=== PATIENT | male | born 1975 | race Caucasian/White ===

== ENCOUNTER 2016-05-15 21:00 | Emergency (ER) | payer OTHER ==
[~2016-05-15] VITALS: Ht 170.2 cm; Wt 91.0 kg
[2016-05-15 21:02] VITALS: BP 125/78; PULSE 54; RESP 16; TEMP 97.9; O2SAT 97
[2016-05-15] MEDS ORDERED: TETANUS/DIPHTHERIA TOXOID ADULT 0.5 ML VIAL IM ONE (21:45)
[2016-05-15] MEDS ORDERED: PROPARACAINE HCL 0.5% OPHT SOLN 15 ML BTL EACH EYE ONE (21:45)
--- NOTE | 2016-05-15 21:59 | PD ---
HPI Chief Complaint: Foreign Body Time Seen by Provider: 21:55 Travel History International Travel<30 days: No Contact w/Intl Traveler<30days: No Traveled to known affect area: No History of Present Illness HPI 40-year-old male presents emergency department with complaints of right eye pain. He states that sometime around 2:00 this afternoon while at work a piece of wood kicked up into his right eye underneath his glasses. He states that he has had pain and tearing. Positive photophobia. Positive foreign body sensation. He rinsed his eye out at work but has had persistent pain. Slight blurred vision. No diplopia. He is not a tetanus shot over 5 years. No glasses or contacts. PFSH Past Medical History Medical History: Denies Significant Hx Tetanus Vaccination: > 5 Years Past Surgical History Surgical History: No Previous Surgery Social History Alcohol Use: No Tobacco Use: Yes Substance Use: No Allergies-Medications (Allergen,Severity, Reaction): Coded Allergies: No Known Allergies (Unverified , 05/15/16) Review of Systems Except as stated in HPI: all other systems reviewed are Neg Eyes: Positive: Blurred Vision, Photophobia, Redness, Foreign Body Sensation, Pain, Tearing, Visual changes, No: Diploplia, Drainage Physical Exam Narrative GENERAL: Well-developed, well-nourished in no acute distress. Nontoxic appearing. HEAD: Normocephalic, atraumatic. EYES: Pupils equal round and reactive. Extraocular motions intact. No scleral icterus. No injection or drainage in the left eye. The right eye is injected. There is subconjunctival hemorrhage. Ophthaine is instilled the right eye. The lids are flipped and no foreign body seen. Fluorescein stain reveals 2 areas of corneal abrasion outside of the central vision. One at the nasal aspect and one at the superior aspect of the cornea. ENT: TMs clear without erythema. The external auditory canals clear. Nose: clear . Posterior pharynx is pink and moist. No tonsillar edema or exudate. Uvula midline. Airway patent. NECK: Trachea midline.Supple, nontender, moves head freely. No central bony tenderness or spasm. CARDIOVASCULAR: Regular rate and rhythm without murmurs, gallops, or rubs. RESPIRATORY: Clear to auscultation. Breath sounds equal bilaterally. No wheezes , rales, or rhonchi. GASTROINTESTINAL: Abdomen soft, non-tender, nondistended. No hepato-splenomegaly , or palpable masses. No guarding. EXTREMITIES: No clubbing, cyanosis, or edema. No joint tenderness, effusion, or edema noted. BACK: Nontender without deformity or crepitance. No flank tenderness. Data Data Last Documented VS Vital Signs Date Time Temp Pulse Resp B/P Pulse Ox O2 Delivery O2 Flow Rate FiO2 05/15/16 21:02 97.9 54 16 125/78 97 Room Air Orders Proparacaine 0.5% Opth Soln (Alcaine 0.5 (05/15/16 21:45) Tetanus/Diphtheria Tox Adult (Tetanus/Di (05/15/16 21:45) Tobramycin 0.3% Opth Oint (Tobrex 0.3% O (05/15/16 22:00) MDM Medical Decision Making Medical Screen Exam Complete: Yes Emergency Medical Condition: Yes Medical Record Reviewed: Yes Differential Diagnosis MDM: High Differential diagnoses: Acute conjunctivitis (bacterial, viral, allergic, traumatic), glaucoma, iritis, traumatic globe injury, foreign body, corneal abrasion, corneal ulcer, diabetic retinopathy, photokeratitis, herpes keratitis , CMV retinitis Narrative Course This is acute corneal abrasion Patient's tetanus status updated. Tobramycin ophthalmic ointment and one Lortab 5 a grams by mouth. Diagnosis Primary Impression: Right corneal abrasion Qualified Code: S05.01XA - Right corneal abrasion, initial encounter Referrals: Berta West MD 1 day Patient Instructions: General Instructions Departure Forms: Tests/Procedures, Work Release Special Instructions: No work 2 days. Additional Instructions: Rest. Tobramycin ophthalmic ointment. One ribbon to the right eye 4 times daily. Tylenol or Advil. Recheck tomorrow with the environmental protection geologist. Return to the ER if any problems. Med/Other Pt SpecificInfo: Prescription(s) given Disposition: 01 DISCHARGE HOME Condition: Stable Tay Quinn May 15, 2016 21:59
[2016-05-15] MEDS ORDERED: TOBRAMYCIN SULFATE 0.3% OPTH OINT 3.5 GM TUBE LEFT EYE ONE (22:00)
[2016-05-15] MEDS ORDERED: TOBR.3%O RIGHT EYE (22:00)
[2016-05-15] MEDS ORDERED: ACETAMINOPHEN/HYDROcodone 325 MG/5 MG TAB PO ONE (22:00)
== END 2016-05-15 22:20 | disposition home or self-care (01) ==
LOC: NEPB 21:00
DX: S05.01XA Injury of conjunctiva and corneal abrasion without foreign body, right eye, initial encounter (principal); H53.149 Visual discomfort, unspecified; W20.8XXA Other cause of strike by thrown, projected or falling object, initial encounter; Y99.0 Civilian activity done for income or pay; Z72.0 Tobacco use; Z23 Encounter for immunization
CPT/HCPCS: 90471; 90714